=== PATIENT | male | born 1975 | race Caucasian/White ===

== ENCOUNTER 2017-04-10 16:52 | Emergency (ER) | payer OTHER ==
[~2017-04-10] VITALS: Ht 172.7 cm; Wt 111.1 kg
[~2017-04-10 16:52] MED LIST: ALDACTONE25 MG PO; ALDACTONE50 MG PO; AMBIEN 5 MG TABL5 M1 PO; ATIVAN1 MG PO; BENADRYL ALLERG25 MG PO; CONSTULOSE10 GM/15 M PO; DUONEB 2.5-0.5 M3 ML INH; FOLIC ACID 1 MG1 MG PO; FOLIC ACID1 MG PO; KLOR-CON M2020 MEQ PO; LASIX 20 MG TAB20 MG PO; LASIX 40 MG TAB40 M2 PO; MAGNESIUM OXID400 MG PO; MAGOX 400400 MG PO; MEDROL4 MG PO; Melatonin 5MG CAPSUL PO; NORVASC5 MG PO; PHENERGAN 25 MG25 M1 PO; PHOS-NAK PACKE1 EACH PO; POTASSIUM20 PO; PROTONIX40 M1 PO; QUESTRAN PACKET4 GM PO; TRINATE TABLET1 TAB PO; UNICOMPLEX M TA1 TA1 PO; VENTOLIN HFA 1818 GM INH; VICODIN; VITAMIN B-1100 M1 PO; VITAMIN B-121000 MCG PO; VITAMIN B-12500 MCG PO; ZANTAC 150MG T150 MG PO; ZOFRAN ODT4 MG SUBLING; [UNRECOGNIZED DRUG - CODE] PO
[2017-04-10] MEDS ORDERED: GABAPENTIN 100100 MG PO (17:50)
[2017-04-10 18:04] LABS: INFLUENZA A ANTIGEN None Detected (None Detect); INFLUENZA B ANTIGEN None Detected (None Detect)
[2017-04-10 18:38] LABS: ABSOLUTE EOSINOPHILS 0.2 thou/uL (0.0-0.7); ABSOLUTE LYMPHOCYTES 1.7 thou/uL (0.8-5.3); ABSOLUTE MONOCYTES 0.7 thou/uL (0.0-1.2); ABSOLUTE NEUTROPHILS 2.9 thou/uL (1.6-8.1); BASOPHILS 0.9 %; EOSINOPHILS 4.2 %; HEMATOCRIT 43.9 % (42.0-52.0); HEMOGLOBIN 14.8 gm/dL (14.0-18.0); LYMPHOCYTES 29.9 %; MCH 33.4 pg (26.0-34.0); MCHC 33.7 g/dL (28.0-37.0); MCV 99.1 fL (80.0-100.0); MONOCYTES 12.2 %; MPV 9.8 fl. (7.2-11.1); NUCLEATED RBCS 0 /100WBC; PLATELET COUNT* 90 thou/uL (150-400); POLYS 52.8 %; RBC 4.43 mil/uL (4.50-6.00); RDW-CV 14.5 % (10.5-14.5); WBC 5.6 thou/uL (4.0-11.0)
[2017-04-10 18:43] LABS: ANION GAP 8 mmol/L (7-16); BUN 4 mg/dL (7-18); CALCIUM 8.5 mg/dL (8.5-10.1); CHLORIDE 104 mmol/L (98-107); CO2 28 mmol/L (21-32); CREATININE 0.6 mg/dL (0.6-1.3); GLUCOSE 99 mg/dL (70-99); SODIUM 140 mmol/L (136-145)
[2017-04-10 18:44] LABS: URINE BILIRUBIN NEGATIVE (Negative); URINE BLOOD NEGATIVE (Negative); URINE CLARITY CLEAR; URINE COLOR YELLOW; URINE GLUCOSE-RANDOM NEGATIVE (Negative); URINE KETONES NEGATIVE (Negative); URINE LEUKOCYTES-REFLEX NEGATIVE (Negative); URINE NITRITE-REFLEX NEGATIVE (Negative); URINE PROTEIN NEGATIVE (Negative); URINE SPECIFIC GRAVITY <= 1.005 (1.005-1.030); URINE UROBILINOGEN 0.2 E.U./dl (0.2-1.0)
[2017-04-10 18:51] LABS: ALBUMIN 3.2 g/dL (3.4-5.0); ALKALINE PHOSPHATASE 128 U/L (46-116); AMMONIA 78 umol/L (11-32); SGOT 193 U/L (15-37); SGPT 88 U/L (30-65); TOTAL BILIRUBIN 1.6 mg/dL (<0.1-1.0); TOTAL PROTEIN 7.9 g/dL (6.4-8.2); TROPONIN-I LEVEL <0.06 ng/mL (<0.06)
[2017-04-10 18:55] LABS: AMP/METHAMP Negative (Negative); BARBITURATES Negative (Negative); BENZODIAZEPINES Negative (Negative); COCAINE Negative (Negative); METHADONE Negative (Negative); OPIATES Negative (Negative); PCP Negative (Negative); THC Negative (Negative)
[2017-04-10 20:36] VITALS: BP 143/90
--- NOTE | 2017-04-11 11:46 | EKG ---
[place] [address] ELECTROCARDIOGRAM REPORT Name: BIGG AUGUSTIN [id number] Admission: 04/10/17 Attend Phys: Discharge: 04/10/17 Date of : 73 Report #: [id number] THIS REPORT FOR: //name// [facility] ED Test Date: 2017-04-10 Test Time: 18:34:50 Pat Name: BIGG AUGUSTIN Department: Room: Gender: M Sum[place] Tanner: Eve GOOD : 1975 Requested By: Sona Kaminski Order Number: [id number] MD: Grant Perry Measurements Intervals [place] Rate: 82 P: 43 WI: 172 QRS: 35 QRSD: 104 T: 33 QT: 383 QTc: 448 Interpretive Statements Sinus rhythm Compared to ECG 10/22/2015 22:12:19 No significant changes Electronically Signed On 04-11-2017 11:46:44 MEAT CURER by Grant Perry [email or web address] <ELECTRONICALLY SIGNED> By: Grant Perry MD, [facility] 04/11/17 1146 1834 1834 Grant Perry MD, FACC /EPI
== END 2017-04-10 20:37 | disposition home or self-care (01) ==
LOC: M.ERS 16:52
PROVIDERS: Nurse Practitioner Family; Personal Emergency Response Attendant
DX: F10.129 Alcohol abuse with intoxication, unspecified (principal); I10 Essential (primary) hypertension; Z88.1 Allergy status to other antibiotic agents

== ENCOUNTER 2017-07-28 23:35 | Inpatient (IN) | payer OTHER ==
[~2017-07-28] VITALS: Ht 172.7 cm; Wt 115.2 kg
[~2017-07-28 23:35] MED LIST changes: +GABAPENTIN 100100 MG PO
[2017-07-28 23:42] VITALS: BP 108/64
[2017-07-29] VITALS (13 sets, daily range): BP systolic 98–136; BP diastolic 58–103
[2017-07-29 00:07] LABS: URINE BLOOD NEGATIVE (Negative); URINE CLARITY CLEAR; URINE COLOR ORANGE; URINE GLUCOSE-RANDOM NEGATIVE (Negative); URINE KETONES TRACE (Negative); URINE LEUKOCYTES-REFLEX NEGATIVE (Negative); URINE NITRITE-REFLEX NEGATIVE (Negative); URINE PROTEIN 1+ (Negative); URINE SPECIFIC GRAVITY 1.015 (1.005-1.030)
[2017-07-29 00:07] LABS: ABSOLUTE BASOPHILS 0.1 thou/uL (0.0-0.2); ABSOLUTE EOSINOPHILS 0.1 thou/uL (0.0-0.7); ABSOLUTE LYMPHOCYTES 1.9 thou/uL (0.8-5.3); ABSOLUTE MONOCYTES 0.6 thou/uL (0.0-1.2); ABSOLUTE NEUTROPHILS 3.2 thou/uL (1.6-8.1); BASOPHILS 2.1 %; HEMATOCRIT 40.1 % (42.0-52.0); HEMOGLOBIN 13.7 gm/dL (14.0-18.0); LYMPHOCYTES 32.3 %; MCH 33.2 pg (26.0-34.0); MCHC 34.3 g/dL (28.0-37.0); MCV 96.7 fL (80.0-100.0); MONOCYTES 10.6 %; MPV 10.3 fl. (7.2-11.1); NUCLEATED RBCS 0 /100WBC; PLATELET COUNT* 60 thou/uL (150-400); RBC 4.14 mil/uL (4.50-6.00); RDW-CV 16.1 % (10.5-14.5)
[2017-07-29 00:09] LABS: URINE BILIRUBIN 2+ (Negative)
[2017-07-29 00:11] LABS: ICTOTEST (BILI CONFIRMATORY) Positive (Negative)
[2017-07-29 00:14] LABS: AMP/METHAMP Negative (Negative); BARBITURATES Negative (Negative); BENZODIAZEPINES Negative (Negative); COCAINE Negative (Negative); METHADONE Negative (Negative); OPIATES Negative (Negative); PCP Negative (Negative); THC POSITIVE (Negative)
[2017-07-29 00:19] LABS: CALCIUM 7.5 mg/dL (8.5-10.1); CREATININE 0.9 mg/dL (0.6-1.3); POTASSIUM 3.2 mmol/L (3.5-5.1)
[2017-07-29 00:23] LABS: ALBUMIN 2.6 g/dL (3.4-5.0); MAGNESIUM 1.7 mg/dL (1.8-2.4); PHOSPHORUS* 2.4 mg/dL (2.5-4.9); TOTAL BILIRUBIN 5.6 mg/dL (<0.1-1.0); TOTAL PROTEIN 6.5 g/dL (6.4-8.2)
[2017-07-29 10:38] LABS: APTT 33.8 Seconds (25.0-31.3); INR 1.9; PROTIME 18.7 Seconds (9.20-11.50)
[2017-07-29 10:42] LABS: ALBUMIN 2.3 g/dL (3.4-5.0); CALCIUM 7.2 mg/dL (8.5-10.1); CREATININE 0.8 mg/dL (0.6-1.3); TOTAL BILIRUBIN 6.2 mg/dL (<0.1-1.0); TOTAL PROTEIN 5.7 g/dL (6.4-8.2)
[2017-07-29 10:44] LABS: POTASSIUM 2.8 mmol/L (3.5-5.1)
--- NOTE | 2017-07-29 13:22 | EKG ---
[place] [address] ELECTROCARDIOGRAM REPORT Name: BIGG AUGUSTIN Room: [address] IN ..#: [id number] Admission: 07/29/17 Attend Phys: Santino Young, Discharge: Date of : 73 Report #: [id number] THIS REPORT FOR: //name// [facility] ED Test Date: 2017-07-28 Test Time: 23:58:15 Pat Name: BIGG AUGUSTIN Department: Room: Gender: Rehabilitation Assistant: : 1975 Requested By: Sona Kaminski Order Number: [id number] MD: Jhonathan Francois Measurements Intervals [place] Rate: 95 P: 47 [place]: 155 QRS: 49 QRSD: 103 T: 35 QT: 382 QTc: 481 Interpretive Statements Sinus rhythm Borderline prolonged QT interval Baseline wander in lead(s) I,III,aVL Compared to ECG 04/10/2017 18:34:50 No significant changes Electronically Signed On 07-29-2017 13:21:51 CDT by Jhonathan Francois [email or web address] <ELECTRONICALLY SIGNED> By: Jhonathan Francois MD, FAC 07/29/17 1321 [id number] [id number] Jhonathan Francois MD, [facility] /EPI
[2017-07-30] VITALS (14 sets, daily range): BP systolic 123–141; BP diastolic 76–107
[2017-07-30 02:43] LABS: HEMATOCRIT 32.3 % (42.0-52.0); MCH 33.5 pg (26.0-34.0); MCV 98.6 fL (80.0-100.0); MPV 10.4 fl. (7.2-11.1); RBC 3.28 mil/uL (4.50-6.00); RDW-CV 16.4 % (10.5-14.5); WBC 4.4 thou/uL (4.0-11.0)
[2017-07-30 03:02] LABS: INR 1.9
[2017-07-30 03:05] LABS: ALBUMIN 2.2 g/dL (3.4-5.0); CALCIUM 6.9 mg/dL (8.5-10.1); CREATININE 0.9 mg/dL (0.6-1.3); MAGNESIUM 1.5 mg/dL (1.8-2.4); POTASSIUM 3.2 mmol/L (3.5-5.1); TOTAL BILIRUBIN 6.5 mg/dL (<0.1-1.0); TOTAL PROTEIN 5.4 g/dL (6.4-8.2)
[2017-07-31] VITALS (7 sets, daily range): BP systolic 129–159; BP diastolic 58–97
[2017-07-31 03:08] LABS: HEMATOCRIT 34.2 % (42.0-52.0); HEMOGLOBIN 11.6 gm/dL (14.0-18.0); MCH 33.7 pg (26.0-34.0); MPV 10.6 fl. (7.2-11.1); RBC 3.46 mil/uL (4.50-6.00); RDW-CV 16.6 % (10.5-14.5); WBC 3.5 thou/uL (4.0-11.0)
[2017-07-31 03:29] LABS: INR 1.8; PROTIME 17.1 Seconds (9.20-11.50)
[2017-07-31 03:35] LABS: ALBUMIN 2.3 g/dL (3.4-5.0); CALCIUM 7.1 mg/dL (8.5-10.1); CREATININE 0.9 mg/dL (0.6-1.3); MAGNESIUM 1.6 mg/dL (1.8-2.4); POTASSIUM 3.3 mmol/L (3.5-5.1); TOTAL BILIRUBIN 9.8 mg/dL (<0.1-1.0); TOTAL PROTEIN 5.8 g/dL (6.4-8.2)
[2017-07-31 12:20] LABS: CALCIUM 7.4 mg/dL (8.5-10.1); CREATININE 0.9 mg/dL (0.6-1.3); POTASSIUM 3.6 mmol/L (3.5-5.1)
[2017-07-31 17:47] LABS: MAGNESIUM 1.6 mg/dL (1.8-2.4); POTASSIUM 3.2 mmol/L (3.5-5.1)
[2017-08-01 00:05] VITALS: BP 140/88
[2017-08-01 04:00] VITALS: BP 133/82
[2017-08-01 04:21] LABS: HEMATOCRIT 31.6 % (42.0-52.0); HEMOGLOBIN 10.9 gm/dL (14.0-18.0); MCH 33.9 pg (26.0-34.0); MCHC 34.4 g/dL (28.0-37.0); MCV 98.5 fL (80.0-100.0); MPV 10.8 fl. (7.2-11.1); RBC 3.21 mil/uL (4.50-6.00); RDW-CV 16.5 % (10.5-14.5); WBC 4.2 thou/uL (4.0-11.0)
[2017-08-01 04:31] LABS: ALBUMIN 2.1 g/dL (3.4-5.0); CALCIUM 7.3 mg/dL (8.5-10.1); CREATININE 0.7 mg/dL (0.6-1.3); MAGNESIUM 1.5 mg/dL (1.8-2.4); TOTAL BILIRUBIN 10.7 mg/dL (<0.1-1.0); TOTAL PROTEIN 5.4 g/dL (6.4-8.2)
[2017-08-01 04:34] LABS: POTASSIUM 2.9 mmol/L (3.5-5.1)
[2017-08-01 08:00] VITALS: BP 143/88
[2017-08-01 12:00] VITALS: BP 143/88
[2017-08-01 15:12] VITALS: BP 102/58
[2017-08-01 20:11] VITALS: BP 132/94
[2017-08-02] VITALS: BP 139/86
[2017-08-02 04:00] VITALS: BP 129/76
[2017-08-02 04:29] LABS: HEMATOCRIT 33.7 % (42.0-52.0); HEMOGLOBIN 11.4 gm/dL (14.0-18.0); MCH 33.5 pg (26.0-34.0); MCHC 33.9 g/dL (28.0-37.0); MCV 99.1 fL (80.0-100.0); MPV 10.3 fl. (7.2-11.1); RBC 3.41 mil/uL (4.50-6.00); RDW-CV 16.4 % (10.5-14.5); WBC 4.4 thou/uL (4.0-11.0)
[2017-08-02 04:54] LABS: INR 1.7; PROTIME 16.6 Seconds (9.20-11.50)
[2017-08-02 05:25] LABS: ALBUMIN 2.3 g/dL (3.4-5.0); CALCIUM 7.3 mg/dL (8.5-10.1); CREATININE 0.8 mg/dL (0.6-1.3); POTASSIUM 3.3 mmol/L (3.5-5.1); TOTAL BILIRUBIN 10.5 mg/dL (<0.1-1.0); TOTAL PROTEIN 5.8 g/dL (6.4-8.2)
[2017-08-02 08:00] VITALS: BP 144/86
[2017-08-02 12:03] VITALS: BP 131/93
[2017-08-02 12:52] LABS: RBC 3.61 mil/uL (4.50-6.00); WBC 4.5 thou/uL (4.0-11.0)
[2017-08-02 12:54] LABS: HEMATOCRIT 36.1 % (42.0-52.0); HEMOGLOBIN 12.1 gm/dL (14.0-18.0); MCH 33.7 pg (26.0-34.0); MCHC 33.7 g/dL (28.0-37.0); MCV 99.9 fL (80.0-100.0); MPV 9.6 fl. (7.2-11.1); RDW-CV 16.4 % (10.5-14.5)
[2017-08-02 13:12] LABS: CALCIUM 7.8 mg/dL (8.5-10.1); CREATININE 0.8 mg/dL (0.6-1.3); POTASSIUM 3.1 mmol/L (3.5-5.1)
[2017-08-02 13:17] LABS: ALBUMIN 2.5 g/dL (3.4-5.0); TOTAL PROTEIN 6.2 g/dL (6.4-8.2)
[2017-08-02 16:05] VITALS: BP 102/58
[2017-08-02 21:07] VITALS: BP 115/71
[2017-08-03] VITALS (7 sets, daily range): BP systolic 82–131; BP diastolic 40–73
[2017-08-03 04:48] LABS: HEMATOCRIT 32.1 % (42.0-52.0); HEMOGLOBIN 10.9 gm/dL (14.0-18.0); MCH 33.7 pg (26.0-34.0); MCV 99.2 fL (80.0-100.0); MPV 10.2 fl. (7.2-11.1); RBC 3.23 mil/uL (4.50-6.00); RDW-CV 16.5 % (10.5-14.5); WBC 4.1 thou/uL (4.0-11.0)
[2017-08-03 05:08] LABS: ALBUMIN 2.1 g/dL (3.4-5.0); CALCIUM 7.3 mg/dL (8.5-10.1); CREATININE 0.9 mg/dL (0.6-1.3); INR 1.7; MAGNESIUM 1.8 mg/dL (1.8-2.4); POTASSIUM 3.5 mmol/L (3.5-5.1); PROTIME 16.2 Seconds (9.20-11.50); TOTAL PROTEIN 5.4 g/dL (6.4-8.2)
[2017-08-04 04:05] VITALS: BP 108/61
[2017-08-04 05:09] LABS: HEMATOCRIT 32.7 % (42.0-52.0); HEMOGLOBIN 11.3 gm/dL (14.0-18.0); MCH 34.3 pg (26.0-34.0); MCHC 34.4 g/dL (28.0-37.0); MCV 99.7 fL (80.0-100.0); MPV 10.6 fl. (7.2-11.1); RBC 3.28 mil/uL (4.50-6.00); RDW-CV 16.6 % (10.5-14.5); WBC 3.9 thou/uL (4.0-11.0)
[2017-08-04 05:14] LABS: INR 1.6; PROTIME 15.4 Seconds (9.20-11.50)
[2017-08-04 06:32] LABS: ALBUMIN 2.2 g/dL (3.4-5.0); CALCIUM 7.4 mg/dL (8.5-10.1); CREATININE 0.8 mg/dL (0.6-1.3); POTASSIUM 3.3 mmol/L (3.5-5.1); TOTAL BILIRUBIN 6.2 mg/dL (<0.1-1.0); TOTAL PROTEIN 5.3 g/dL (6.4-8.2)
[2017-08-04 08:00] VITALS: BP 106/51
[2017-08-04 12:15] VITALS: BP 108/59
[2017-08-04 15:41] VITALS: BP 152/95
[2017-08-04] MEDS ORDERED: XIFAXAN550 M1 PO (15:45)
[2017-08-04] MEDS ORDERED: PROPRANOLOL 1010 MG PO (15:45)
[2017-08-04] MEDS ORDERED: CARAFATE 11 GM/10 M1 PO (15:45)
[2017-08-04] MEDS ORDERED: OMEPRAZOLE40 MG PO (15:45)
[2017-08-04] MEDS ORDERED: MIRALAX17 GM PO (15:45)
[2017-08-04] MEDS ORDERED: MEDROL8 MG PER TUBE (15:54)
[2017-08-04 16:15] VITALS: BP 152/95
--- NOTE | 2017-08-13 08:22 | CON ---
[address] [address] CONSULTATION Name: BIGG AUGUSTIN Room: [address] IN ..#: [id number] Admission: 07/29/17 Attend Phys: Santino Young, Discharge: 08/04/17 Date of : 73 Report #: [id number] THIS REPORT FOR: //name// CC: KINZA physician/PCP Santino Young DICTATED BY: Rosmery LEÓNP DATE OF SERVICE: 07/30/2017 The patient does not have a PCP. Please note at the time of this dictation, the patient was seen and physically examined by myself. REASON FOR CONSULTATION: Hematemesis and alcohol abuse. HISTORY OF PRESENT ILLNESS: This is a 41-year-old male who is well known to our practice who presented to the Emergency Room with hematemesis. The patient states that he had been drinking some hard liquor. He is not able to quantify the amount; however, he states he relapsed and drinking back in March he states. The patient was last seen in our office back in 2015. He was recommended to get a FibroScan to fully evaluate his cirrhosis, but he never followed up since that time. He has never had an EGD or colonoscopy either. ALLERGIES: CELEBREX. MEDICATIONS FROM HOME: None. PAST MEDICAL HISTORY: Alcohol abuse, history of pancreatitis, history of reflux, hypertension, history of varices and portal hypertension in the past. PAST SURGICAL HISTORY: Negative. FAMILY HISTORY: Negative for any GI or female cancers. SOCIAL HISTORY: He is , the longest time he has quit drinking has been 6 months a long history alcoholism. He is , with children. REVIEW OF SYSTEMS: Twelve-point review of systems is essentially negative except what is mentioned in the HPI. PHYSICAL EXAMINATION: VITAL SIGNS: Temperature 37.2, pulse 104, respirations 20, blood pressure 135/89. HEART: Regular rate and rhythm, [place] [address] CONSULTATION Name: BIGG AUGUSTIN Room: [address]#: [id number] Admission: 07/29/17 Attend Phys: Santino Young, Discharge: 08/04/17 Date of : 73 Report #: [id number] LUNGS: Diminished but essentially clear. ABDOMEN: Soft, positive bowel sounds in all 4 quadrants, slightly distended, but no pain. EXTREMITIES: Free from any edema. SKIN: Slight icterus noted as well as eyes scleral icterus also noted. LABORATORY DATA: Hemoglobin is 11, hematocrit 32.3, white count is 4.4, platelets is only 39. Sodium 145, potassium 3.2, chloride 109, CO2 of 30, BUN is 14, creatinine 0.9, GFR is 83, glucose is 149. PT is 18.7, INR is 1.9, B12 is 16, GGT was 1158, ammonia was 113, total bilirubin on admission was 6.2, it is up to 6.5, alkaline phosphatase 140, down to 121, ALT 108, down to 101, AST was 274, ____ and his alcohol level on admission was 281. Positive also for marijuana on drug screen. IMPRESSION: 1. Hematemesis. 2. Acute alcoholic hepatitis. 3. Alcoholic cirrhosis. 4. Hepatic encephalopathy. 5. Thrombocytopenia. 6. Alcohol abuse, longstanding. PLAN: 1. EGD with Dr. Jones today. 2. Continue his Protonix and octreotide drips. 3. We will start methylprednisolone 32 mg daily due to his acute alcoholic hepatitis in his discriminant function being greater than 32. He is currently 37. 4. We will continue lactulose and add Xifaxan b.i.d. 5. The patient will need to quit drinking altogether. 6. Further recommendations to be noted and made after the above has been performed. Thank you for allowing us to participate in this patient's care. Please do not hesitate to call with any questions in regard to this consult. <ELECTRONICALLY SIGNED> By: Abdi Jones MD 08/13/17 0822 1143 [id number] Jones MD /nt
--- NOTE | 2017-08-13 08:22 | CON ---
[address] [address] CONSULTATION Name: BIGG AUGUSTIN Room: [address] IN M.R.#: [id number] Admission: 07/29/17 Attend Phys: Santino Young, Discharge: 08/04/17 Date of : 73 Report #: [id number] THIS REPORT FOR: //name// CC: KINZA physician/PCP Santino Young DATE OF SERVICE: 07/30/2017 ADDENDUM I personally seen and examined the patient and reviewed labs and imaging. The patient with history of alcoholic cirrhosis who presents with hematemesis. His initial hemoglobin was 14.7 and now has dropped to 11. His MELD score is 21 and DF of 32. The patient has initially been started on Protonix and octreotide. We will go ahead and start on methylprednisone since he has DF more than 32. We will perform an upper endoscopy and further evaluate his hematemesis. <ELECTRONICALLY SIGNED> By: Abdi Jones MD 08/13/17 0822 1331 [id number] Jones MD /nt
== END 2017-08-04 16:55 | disposition home or self-care (01) | DRG 432 ==
LOC: M.ERS 23:35 → M.TBA-ER 07-29 02:55 → M.ICU 07-29 02:55 → M.2W 08-01 19:00
PROVIDERS: Internal Medicine; Internal Medicine Gastroenterology; Nurse Practitioner Adult Health; Personal Emergency Response Attendant; ADMIT Family Medicine
PROC: 06L38CZ Occlusion of Esophageal Vein with Extraluminal Device, Via Natural or Artificial Opening Endoscopic (ICD-10-PCS; principal; 2017-07-30)
DX: K70.30 Alcoholic cirrhosis of liver without ascites (principal); I85.01 Esophageal varices with bleeding; J96.01 Acute respiratory failure with hypoxia; K65.2 Spontaneous bacterial peritonitis; K22.6 Gastro-esophageal laceration-hemorrhage syndrome; R65.10 Systemic inflammatory response syndrome (SIRS) of non-infectious origin without acute organ dysfunction; K76.6 Portal hypertension; D61.818 Other pancytopenia; K72.90 Hepatic failure, unspecified without coma; F10.10 Alcohol abuse, uncomplicated; I10 Essential (primary) hypertension; K21.9 Gastro-esophageal reflux disease without esophagitis; K70.10 Alcoholic hepatitis without ascites; D69.6 Thrombocytopenia, unspecified; K44.9 Diaphragmatic hernia without obstruction or gangrene; K31.89 Other diseases of stomach and duodenum; Z88.8 Allergy status to other drugs, medicaments and biological substances; Z79.899 Other long term (current) drug therapy

== ENCOUNTER → 2017-09-21 | Outpatient (CLI) | payer OTHER ==
[~2017-09-21] MED LIST changes: +CARAFATE 11 GM/10 M1 PO; +MEDROL8 MG PER TUBE; +MIRALAX17 GM PO; +OMEPRAZOLE40 MG PO; +PROPRANOLOL 1010 MG PO; +XIFAXAN550 M1 PO
== END ==
LOC: M.LAB 05:53
DX: Z01.812 Encounter for preprocedural laboratory examination (principal)

== ENCOUNTER 2018-01-23 18:00 | Emergency (ER) | payer OTHER ==
[~2018-01-23] VITALS: Ht 172.7 cm; Wt 101.6 kg
[2018-01-23] MEDS ORDERED: UNICOMPLEX M TA1 TA1 PO (18:22)
[2018-01-23] MEDS ORDERED: FOLIC ACID1 MG PO (18:22)
[2018-01-23] MEDS ORDERED: VITAMIN B-1100 M1 PO (18:22)
[2018-01-23 19:14] LABS: ABSOLUTE LYMPHOCYTES 1.7 thou/uL (0.8-5.3); ABSOLUTE MONOCYTES 0.2 thou/uL (0.0-1.2); ABSOLUTE NEUTROPHILS 2.4 thou/uL (1.6-8.1); BASOPHILS 0.6 %; EOSINOPHILS 0.2 %; HEMATOCRIT 38.9 % (42.0-52.0); HEMOGLOBIN 13.6 gm/dL (14.0-18.0); LYMPHOCYTES 38.9 %; MCH 31.5 pg (26.0-34.0); MONOCYTES 5.5 %; MPV 7.3 fl. (7.2-11.1); NUCLEATED RBCS 0 /100WBC; PLATELET COUNT* 97 thou/uL (150-400); POLYS 54.8 %; RBC 4.32 mil/uL (4.50-6.00); WBC 4.4 thou/uL (4.0-11.0)
[2018-01-23 19:25] LABS: APTT 30.3 Seconds (25.0-31.3); CALCIUM 8.4 mg/dL (8.5-10.1); CREATININE 0.7 mg/dL (0.6-1.3); INR 1.2; POTASSIUM 3.5 mmol/L (3.5-5.1); PROTIME 12.2 Seconds (9.20-11.50)
[2018-01-23 19:30] LABS: ALBUMIN 3.7 g/dL (3.4-5.0); TOTAL BILIRUBIN 0.9 mg/dL (<0.1-1.0); TOTAL PROTEIN 7.4 g/dL (6.4-8.2)
[2018-01-23 19:41] VITALS: BP 139/93
== END 2018-01-23 19:42 | disposition home or self-care (01) ==
LOC: M.ERS 18:00
PROVIDERS: Nurse Practitioner Family
DX: F10.10 Alcohol abuse, uncomplicated (principal); Y90.9 Presence of alcohol in blood, level not specified; I10 Essential (primary) hypertension; K74.60 Unspecified cirrhosis of liver

== ENCOUNTER 2018-10-15 06:41 | Emergency (ER) | payer OTHER ==
[~2018-10-15] VITALS: Ht 172.7 cm; Wt 108.9 kg
[2018-10-15 07:36] LABS: HEMATOCRIT 41.9 % (42.0-52.0); HEMOGLOBIN 14.5 gm/dL (14.0-18.0); MCH 31.3 pg (26.0-34.0); MCHC 34.7 g/dL (28.0-37.0); MCV 90.4 fL (80.0-100.0); MPV 8.6 fl. (7.2-11.1); NUCLEATED RBCS 0 /100WBC; PLATELET COUNT* 123 thou/uL (150-400); RBC 4.64 mil/uL (4.50-6.00); RDW-CV 13.8 % (10.5-14.5); WBC 7.4 thou/uL (4.0-11.0)
[2018-10-15 07:59] LABS: ABSOLUTE EOSINOPHILS 0.9 thou/uL (0.0-0.7); ABSOLUTE LYMPHOCYTES 1.9 thou/uL (0.8-5.3); ABSOLUTE NEUTROPHILS 3.7 thou/uL (1.6-8.1); PLATELET ESTIMATE DECREASED
[2018-10-15 08:00] LABS: ANISOCYTOSIS 1+; POIKILOCYTOSIS 1+
[2018-10-15 08:11] LABS: CREATININE 0.8 mg/dL (0.6-1.3)
[2018-10-15 08:13] LABS: POTASSIUM 2.8 mmol/L (3.5-5.1)
[2018-10-15 08:19] LABS: ALBUMIN 2.9 g/dL (3.4-5.0); TOTAL BILIRUBIN 1.2 mg/dL (<0.1-1.0); TOTAL PROTEIN 6.9 g/dL (6.4-8.2)
[2018-10-15] MEDS ORDERED: K-DUR 20 MEQ T20 MEQ PO (08:29)
[2018-10-15] MEDS ORDERED: AZITHROMYCIN 2250 MG PO ×2 (08:29)
[2018-10-15 08:32] VITALS: BP 143/96
== END 2018-10-15 08:33 | disposition home or self-care (01) ==
LOC: M.ERS 06:41
PROVIDERS: Emergency Medicine
DX: J40 Bronchitis, not specified as acute or chronic (principal); I10 Essential (primary) hypertension; K74.60 Unspecified cirrhosis of liver; Z88.1 Allergy status to other antibiotic agents

== ENCOUNTER 2018-10-16 19:26 | Inpatient (IN) | payer OTHER ==
[~2018-10-16] VITALS: Ht 172.7 cm; Wt 115.6 kg
[~2018-10-16 19:26] MED LIST changes: +AZITHROMYCIN 2250 MG PO; +K-DUR 20 MEQ T20 MEQ PO
[2018-10-16 19:33] VITALS: BP 178/110
[2018-10-16 20:00] LABS: ABSOLUTE LYMPHOCYTES 2.1 thou/uL (0.8-5.3); ABSOLUTE MONOCYTES 1.1 thou/uL (0.0-1.2); ABSOLUTE NEUTROPHILS 8.3 thou/uL (1.6-8.1); BASOPHILS 0.2 %; EOSINOPHILS 7.9 %; HEMOGLOBIN 14.2 gm/dL (14.0-18.0); LYMPHOCYTES 16.5 %; MCH 31.4 pg (26.0-34.0); MCHC 34.8 g/dL (28.0-37.0); MCV 90.5 fL (80.0-100.0); MONOCYTES 8.8 %; MPV 8.8 fl. (7.2-11.1); NUCLEATED RBCS 0 /100WBC; PLATELET COUNT* 132 thou/uL (150-400); POLYS 66.6 %; RBC 4.53 mil/uL (4.50-6.00); RDW-CV 13.8 % (10.5-14.5); WBC 12.4 thou/uL (4.0-11.0)
[2018-10-16 20:11] LABS: ANION GAP 8 mmol/L (7-16); BUN 15 mg/dL (7-18); CALCIUM 9.1 mg/dL (8.5-10.1); CHLORIDE 103 mmol/L (98-107); CO2 28 mmol/L (21-32); CREATININE 0.8 mg/dL (0.6-1.3); GLUCOSE 107 mg/dL (70-99); SODIUM 139 mmol/L (136-145)
[2018-10-16 20:25] LABS: ALBUMIN 2.9 g/dL (3.4-5.0); ALKALINE PHOSPHATASE 119 U/L (46-116); SGOT 48 U/L (15-37); SGPT 55 U/L (30-65); TOTAL BILIRUBIN 2.3 mg/dL (<0.1-1.0); TROPONIN-I LEVEL <0.06 ng/mL (<0.06)
[2018-10-16 22:31] VITALS: BP 159/96
[2018-10-16 23:13] VITALS: BP 127/85
[2018-10-17] MEDS ORDERED: ATIVAN0.5 MG PO (00:04)
[2018-10-17] MEDS ORDERED: DOXYCYCLINE 10100 MG PO (00:04)
[2018-10-17] MEDS ORDERED: PREDNISONE 20 M20 MG PO (00:05)
[2018-10-17 04:00] VITALS: BP 108/69
[2018-10-17 08:00] VITALS: BP 127/89
[2018-10-17 11:49] LABS: URINE BILIRUBIN NEGATIVE (Negative); URINE BLOOD NEGATIVE (Negative); URINE CLARITY CLEAR; URINE COLOR YELLOW; URINE GLUCOSE-RANDOM NEGATIVE (Negative); URINE KETONES NEGATIVE (Negative); URINE LEUKOCYTES-REFLEX NEGATIVE (Negative); URINE NITRITE-REFLEX NEGATIVE (Negative); URINE PROTEIN TRACE (Negative)
[2018-10-17 12:00] VITALS: BP 142/94
--- NOTE | 2018-10-17 12:07 | EKG ---
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
--- NOTE | 2018-10-17 13:53 | NUR ---
Pt is A&O. Resides at home with and kids, in room at bedside. Independent and active. No DME. No hx of HH or SNF. Goal is home at dc, no needs anticipated.
[2018-10-17 15:56] VITALS: BP 157/107
[2018-10-17 20:00] VITALS: BP 137/90
[2018-10-18] VITALS: BP 140/97
[2018-10-18 03:47] VITALS: BP 139/90
--- NOTE | 2018-10-18 05:47 | NUR ---
PT SLEPT ON AND OFF THIS SHIFT. ASSESSMENT DOCUMENTED. MEDS GIVEN PER E-MAR. IV PATENT, FLUIDS INFUSING. PAIN MEDS GIVEN PER E-MAR. TELE MONITOR IN PLACE. WILL CONTINUE WITH PLAN OF CARE.
[2018-10-18 08:05] VITALS: BP 149/92
[2018-10-18 13:06] VITALS: BP 146/98
--- NOTE | 2018-10-18 16:06 | NUR ---
PATIENT UP AD DOUG TO BATHROOM. IVF AND SCHED ABX INFUSED ORDERED. PRN TRAMADOL AND COUGH SYRUP GIVEN WITH GOOD RELIEF NOTED. PER ID, URINE TO BE SENT FOR STREP AND LEGIONELLA, SPUTUM ALSO SENT TO LAB ORDERED. PATIENT CONT TO TRACE [facility] ON [facility]. DR. BENITEZ MADE AWARE THAT PATIENTS URINE WAS ORANGE AND HR STILL 130'S-140'S WHEN OUT OF BED, NO NEW ORDERS RECEIVED. RVP SENT ORDERED.
[2018-10-18 17:28] VITALS: BP 135/98
[2018-10-18 19:30] VITALS: BP 151/91
[2018-10-19] VITALS: BP 148/87
[2018-10-19 04:00] VITALS: BP 126/82
[2018-10-19 05:06] LABS: ABSOLUTE BASOPHILS 0.1 thou/uL (0.0-0.2); ABSOLUTE EOSINOPHILS 0.5 thou/uL (0.0-0.7); ABSOLUTE LYMPHOCYTES 1.6 thou/uL (0.8-5.3); ABSOLUTE MONOCYTES 0.9 thou/uL (0.0-1.2); ABSOLUTE NEUTROPHILS 6.2 thou/uL (1.6-8.1); BASOPHILS 0.9 %; EOSINOPHILS 5.6 %; HEMATOCRIT 36.6 % (42.0-52.0); HEMOGLOBIN 12.7 gm/dL (14.0-18.0); LYMPHOCYTES 17.1 %; MCH 31.7 pg (26.0-34.0); MCHC 34.7 g/dL (28.0-37.0); MCV 91.4 fL (80.0-100.0); MONOCYTES 9.6 %; MPV 9.6 fl. (7.2-11.1); NUCLEATED RBCS 0 /100WBC; PLATELET COUNT* 86 thou/uL (150-400); POLYS 66.8 %; RDW-CV 13.7 % (10.5-14.5); WBC 9.2 thou/uL (4.0-11.0)
--- NOTE | 2018-10-19 06:13 | NUR ---
PT ALERT AND ORIENTED. LEVI OBRIEN IN THE 110's. ASSESSMENT DOCUMENTED. MEDS GIVEN PER EMAR. PAIN MEDS GIVEN THIS SHIFT. RELIEF NOTED. PT SLEPT MOST OF SHIFT. UP AD DOUG. HR UP TO 130's DURING AMBULATION. HOURLY ROUNDINGS MADE. CALL LIGHT WITHIN REACH. WILL CONTINUE TO MONITOR.
[2018-10-19 06:54] LABS: ESR (SEDRATE) 68 mm/hr (0-15)
[2018-10-19 08:00] VITALS: BP 137/91
[2018-10-19 11:20] VITALS: BP 139/90
[2018-10-19] MEDS ORDERED: TRAMADOL 50 MG50 MG PO ×2 (11:29)
[2018-10-19] MEDS ORDERED: LEVAQUIN 750 M750 MG PO ×2 (11:29)
[2018-10-19] MEDS ORDERED: APAP650 PO (12:00)
[2018-10-19 12:35] VITALS: BP 139/90
[2018-10-19] MEDS ORDERED: UNICOMPLEX M TA1 TA1 PO (12:47)
--- NOTE | 2018-10-19 12:47 | NUR ---
ASSUMED PT CARE REPORT RECEIVED FROM NURSE PT IS AOX4, TRACING SINUS TACYCARDIA ON TELE MONITOR. ON RA. O2 SATURATION IS 93%. COUGH MEDICINE GIVEN. IV ABX GIVEN. IV FLUID IN FUSING. PT DENIES PAIN, N/V. TYLENOL GIVEN FOR SLIGHTLY ELEVATED TEMPERATURE. DISCHARGE PENDING. WILL CONTINUE TO MONITOR PT
[2018-10-22 23:11] LABS: MYCOPLASMA PNEUMONIA IgG 1160 U/mL (0-99)
[2018-10-23 22:17] LABS: ADENOVIRUS Negative (Negative); INFLUENZA A Negative (Negative); INFLUENZA B Negative (Negative); METAPNEUMOVIRUS Negative (Negative); PARAINFLUENZA 1 Negative (Negative); PARAINFLUENZA 2 Negative (Negative); PARAINFLUENZA 3 Negative (Negative); RHINOVIRUS Positive (Negative); RSV A Negative (Negative); RSV B Negative (Negative)
[2018-10-23 23:06] LABS: MYCOPLASMA PNEUMONIA IgM <770 U/mL (0-769)
== END 2018-10-19 13:35 | disposition home or self-care (01) | DRG 871 ==
LOC: M.ERS 19:26 → M.TBA-ER 20:59 → M.2W 20:59
PROVIDERS: Emergency Medicine Emergency Medical Services; Internal Medicine Infectious Disease; ADMIT Internal Medicine
DX: A41.9 Sepsis, unspecified organism (principal); J69.0 Pneumonitis due to inhalation of food and vomit; I10 Essential (primary) hypertension; R00.0 Tachycardia, unspecified; K74.60 Unspecified cirrhosis of liver; Z88.8 Allergy status to other drugs, medicaments and biological substances; Z82.49 Family history of ischemic heart disease and other diseases of the circulatory system; Z87.891 Personal history of nicotine dependence; Z79.899 Other long term (current) drug therapy

== ENCOUNTER → 2020-07-08 | Outpatient (CLI) | payer OTHER ==
[~2020-07-08] MED LIST changes: +APAP650 PO; +ATIVAN0.5 MG PO; +DOXYCYCLINE 10100 MG PO; +LEVAQUIN 750 M750 MG PO; +PREDNISONE 20 M20 MG PO; +TRAMADOL 50 MG50 MG PO
[2020-07-08 09:59] LABS: ABSOLUTE EOSINOPHILS 0.3 thou/uL (0.0-0.7); ABSOLUTE MONOCYTES 0.5 thou/uL (0.0-1.2); ABSOLUTE NEUTROPHILS 2.5 thou/uL (1.6-8.1); BASOPHILS 0.5 %; EOSINOPHILS 6.5 %; HEMATOCRIT 38.5 % (42.0-52.0); HEMOGLOBIN 13.2 gm/dL (14.0-18.0); LYMPHOCYTES 23.3 %; MCH 32.4 pg (26.0-34.0); MCHC 34.4 g/dL (28.0-37.0); MCV 94.4 fL (80.0-100.0); MONOCYTES 10.8 %; NUCLEATED RBCS 0 /100WBC; PLATELET COUNT* 60 thou/uL (150-400); POLYS 58.9 %; RBC 4.08 mil/uL (4.50-6.00); RDW-CV 18.4 % (10.5-14.5); WBC 4.2 thou/uL (4.0-11.0)
[2020-07-08 10:16] LABS: INR 1.2; PROTIME 12.4 Seconds (9.20-11.50)
[2020-07-08 10:35] LABS: ALBUMIN 1.9 g/dL (3.4-5.0); CALCIUM 8.1 mg/dL (8.5-10.1); CREATININE 0.8 mg/dL (0.6-1.3); TOTAL BILIRUBIN 4.1 mg/dL (<0.1-1.0); TOTAL PROTEIN 6.4 g/dL (6.4-8.2)
[2020-07-08 14:18] LABS: POTASSIUM 2.6 mmol/L (3.5-5.1)
== END ==
LOC: M.ULTRA 09:03
PROVIDERS: ATTEND Internal Medicine Gastroenterology
DX: K74.60 Unspecified cirrhosis of liver (principal)